=== PATIENT | male | born 1950 ===

== ENCOUNTER 2019-08-20 14:34 | Outpatient (CLI) | payer OTHER | END 2019-08-20 14:36 | disposition home or self-care (01) | LOC: RAD 14:34 | DX: J44.9 Chronic obstructive pulmonary disease, unspecified (principal); I51.7 Cardiomegaly; I70.0 Atherosclerosis of aorta ==

== ENCOUNTER → 2021-02-15 12:45 | Outpatient (CLI) | payer OTHER | END | disposition home or self-care (01) | LOC: LAB 12:45 → RAD 12:45 | PROVIDERS: ATTEND Internal Medicine Pulmonary Disease | DX: J44.9 Chronic obstructive pulmonary disease, unspecified (principal); I10 Essential (primary) hypertension; R06.09 Other forms of dyspnea ==